=== PATIENT | male | born 1985 | race Two or more races ===

== ENCOUNTER 2023-04-15 14:52 | Emergency (ER) | payer OTHER ==
[2023-04-15 15:13] VITALS: BP 133/65; PULSE 73; RESP 16; TEMP 98.3; BMI 25.8
[2023-04-15] MEDS ORDERED: ACETAMINOPHEN 500 MG TABLET (FP) PO ONE (16:48)
[2023-04-15] MEDS ORDERED: IBUPROFEN 600 MG TABLET (FP) PO ONE ×2 (16:48→16:53)
[2023-04-15] MEDS ORDERED: DIPHTH,PERTUSS(ACELL),TET 0.5 ML DISP.SYRIN IM ONE ×2 (16:48→16:53)
[2023-04-15] MEDS ORDERED: ACETAMINOPHEN 500 MG TABLET (FP) ONE (16:53)
[2023-04-15] MEDS ORDERED: BACITRACIN ZINC 15 GM TUBE TOPICAL OINTMENT TP ONE (17:12)
[2023-04-15] MEDS ORDERED: BACITRACIN ZINC 15 GM TUBE TOPICAL OINTMENT ONE (17:14)
== END 2023-04-15 17:24 | disposition home or self-care (01) ==
LOC: JERFT 14:52
PROC: 0HQLXZZ Repair Left Lower Leg Skin, External Approach (ICD-10-PCS; principal; 2023-04-15)
PROC: 3E0234Z Introduction of Serum, Toxoid and Vaccine into Muscle, Percutaneous Approach (ICD-10-PCS; 2023-04-15)
DX: S81.012A Laceration without foreign body, left knee, initial encounter (principal); W29.3XXA Contact with powered garden and outdoor hand tools and machinery, initial encounter; Y99.0 Civilian activity done for income or pay
CPT/HCPCS: 90715; 99283-25

== ENCOUNTER 2023-04-24 14:29 | Emergency (ER) | payer OTHER ==
[2023-04-24 14:35] VITALS: BP 114/70; PULSE 73; RESP 18; TEMP 98.2; BMI 25.8
== END 2023-04-24 15:42 | disposition home or self-care (01) ==
LOC: JER 14:29 → JERFT 14:29
DX: Z48.02 Encounter for removal of sutures (principal)
CPT/HCPCS: 99281-25